=== PATIENT | male | born 1995 | race Caucasian/White ===

== ENCOUNTER 2018-10-12 22:58 | Inpatient (IN) | payer OTHER ==
[~2018-10-12] VITALS: Ht 180.3 cm; Wt 47.7 kg
[~2018-10-12 22:58] MED LIST: ALBU2.5V3 NEB; MONT5TAB16 PO
[2018-10-13 01:05] VITALS: BP 123/88; PULSE 92; RESP 19
[2018-10-13] MEDS ORDERED: METHYLPREDNISOLONE 125 MG INJ IV STA (01:16)
[2018-10-13 01:26] VITALS: Ht 180.3 cm; Wt 47.7 kg
[2018-10-13] MEDS ORDERED: NACL 0.9% 3 ML SYG IV SCH (01:30)
[2018-10-13] MEDS ORDERED: ACETAMINOPHEN 325 MG TAB PO PRN (01:30)
[2018-10-13] MEDS ORDERED: LEVALBUTEROL (NEB) 0.63 MG/3 ML AMP HHN PRN (01:30)
[2018-10-13] MEDS ORDERED: IPRATROPIUM (NEB) 0.5 MG/2.5 ML AMP NEB PRN (01:30)
[2018-10-13] MEDS ORDERED: ONDANSETRON 4 MG INJ IV PRN (01:30)
[2018-10-13 04:01] VITALS: BP 97/54; PULSE 82; RESP 18
[2018-10-13 07:15] VITALS: BP 100/56; PULSE 86; RESP 20
[2018-10-13] MEDS ORDERED: METHYLPREDNISOLONE 125 MG INJ IV SCH (09:00)
[2018-10-13 11:54] VITALS: BP 100/59; PULSE 88; RESP 20
[2018-10-13 15:55] VITALS: BP 116/63; PULSE 89; RESP 20
[2018-10-13 20:00] VITALS: BP 126/58; PULSE 80; RESP 20
[2018-10-13] MEDS: LEVALBUTEROL (NEB) 0.63 MG/3 ML AMP HHN SCH (20:19)
[2018-10-13] MEDS: IPRATROPIUM (NEB) 0.5 MG/2.5 ML AMP HHN SCH (20:19)
[2018-10-14] VITALS: BP 109/56; PULSE 85; RESP 20
[2018-10-14] MEDS: LEVALBUTEROL (NEB) 0.63 MG/3 ML AMP HHN SCH (01:12)
[2018-10-14] MEDS: IPRATROPIUM (NEB) 0.5 MG/2.5 ML AMP HHN SCH (01:12)
[2018-10-14] MEDS ORDERED: ZOLPIDEM 5 MG TAB PO PRN (02:00)
[2018-10-14 04:00] VITALS: BP 97/59; PULSE 65; RESP 20
[2018-10-14] MEDS ORDERED: ALPRAZOLAM 0.25 MG TAB PO ONE (06:00)
[2018-10-14 07:41] VITALS: BP 134/89; PULSE 100; RESP 20
== END 2018-10-14 08:10 | disposition left against medical advice (07) | DRG 202 ==
LOC: 6WM 10-13 00:42
PROVIDERS: ADMIT Internal Medicine; ATTEND Internal Medicine
DX: J45.901 Unspecified asthma with (acute) exacerbation (principal); R64 Cachexia; Z68.1 Body mass index [BMI] 19.9 or less, adult; F11.10 Opioid abuse, uncomplicated; F12.10 Cannabis abuse, uncomplicated; F17.200 Nicotine dependence, unspecified, uncomplicated; J47.9 Bronchiectasis, uncomplicated; Z53.21 Procedure and treatment not carried out due to patient leaving prior to being seen by health care provider
CPT/HCPCS: 71045; 80048; 80053; 83735; 84100; 85025; 86703; 94640; 94664; J2930